=== PATIENT | female | born 1960 | race Caucasian/White ===

== ENCOUNTER → 2017-01-12 | Outpatient (CLI) | payer OTHER | LOC: FIMAGING 16:04 | PROVIDERS: ATTEND Physician Assistant | DX: Z12.31 Encounter for screening mammogram for malignant neoplasm of breast (principal) | CPT/HCPCS: G0202 ==

== ENCOUNTER 2017-06-17 12:03 | Emergency (ER) | payer OTHER ==
[2017-06-17 12:31] VITALS: TEMP 98.4
--- NOTE | 2017-06-17 13:14 | EDPHY ---
H & P Time Seen by Provider: 06/17/17 13:09 HPI/ROS: CHIEF COMPLAINT: Constipation, inability to urinate HISTORY OF PRESENT ILLNESS: This patient is a 57 year old female with history of IBS complaining of constipation ongoing since Thursday and inability to urinate onset this morning. She has a history of difficult usually takes MiraLax for constipation. She stopped taking MiraLax 2 days ago because her stools became quite soft. Since then, she has been unable to have a bowel movement and feels quite constipated. Yesterday, she felt she needed to have a bowel movement every two hours but was only able to pass mucous. Associated with lower abdominal cramping. Today since waking this morning around 5am, she has been unable to urinate and has continued to feel constipated. She has had gradually increasing suprapubic discomfort. No fever, difficulty breathing, vomiting, headache, or other associated symptoms. REVIEW OF SYSTEMS: A 10 point review of systems was performed and is negative with the exception of the elements mentioned in the history of present illness. Past Medical/Surgical History: 1. Hypothyroid 2. Fibromyalgia 3. IBS 4. Currently undergoing hormone replacement therapy. Social History: Nonsmoker, no alcohol use. at bedside. PCP Marjorie Gerber Physical Exam: General Appearance: Alert, appears comfortable, leiva has already been placed Eyes: Pupils equal and round, no conjunctival pallor or injection ENT, Mouth: Mucous membranes moist Neck: Normal inspection Respiratory: Lungs are clear to auscultation Cardiovascular: Regular rate and rhythm Gastrointestinal: Abdomen is soft, mild suprapubic tenderness Rectal: Normal inspection, large amount of fairly soft brown stool present Neurological: A&O, nonfocal, normal gait Skin: Warm and dry Extremities: Normal inspection Psychiatric: Mood and affect normal Constitutional: Initial Vital Signs Temperature (C) 36.9 C 06/17/17 12:15 Heart Rate 112 H 06/17/17 12:15 Respiratory Rate 18 06/17/17 12:15 Blood Pressure 132/83 H 06/17/17 12:15 O2 Sat (%) 97 06/17/17 12:15 O2 Delivery Mode Room Air Allergies/Adverse Reactions: Sulfa (Sulfonamide Antibiotics) Allergy (Mild, Verified 06/17/17 12:31) pregabalin [From Lyrica] Allergy (Verified 06/17/17 12:31) Tetanus Vaccines and Toxoid Allergy (Verified 06/17/17 12:31) flu shots Allergy (Uncoded 06/17/17 12:31) Home Medications: Medication Instructions Recorded Morphine Sulfate [Ms Contin] 15 mg PO 06/17/17 Topiramate [Topamax] 25 mg PO 06/17/17 oxyCODONE HCL [Oxycodone HCl] 5 mg PO 06/17/17 tiZANidine HCL [Zanaflex 2MG (*)] 2 mg PO 06/17/17 Medical Decision Making ED Course/Re-evaluation: 57 year old female presents with four day history of constipation and urinary retention since yesterday evening. I considered multiple etiologies for the urinary retention, but feel that is most likely secondary to obstipation. Leiva catheter placed with 1 L of urine output initially. Discussed with patient, plan for enema. If she is able to have a large bowel movement, we will discontinue the urinary catheter. UA negative for UTI. The patient declines the enema, stating that she doubts that she can hold the enema. She prefers to go home and use magnesium citrate at home. She would like to d/c the leiva herself and not return to the ED or see a urologist. Plan to discharge home in good condition. She will take magnesium citrate at home and be instructed in removing her catheter herself following a successful large bowel movement. She understands this must be removed by Thursday. She will return to the emergency department or follow up with her primary care physician if she is unable to have a bowel movement or if she has recurrent urinary retention. Follow up and return precautions discussed. The patient is comfortable with this plan. Differential Diagnosis: Differential diagnosis includes but not limited to urinary tract infection, cauda equina syndrome, urethral stricture, medication side effect. Departure - Departure Disposition: Home, Routine, Self-Care Clinical Impression: Acute retention of urine Constipation Qualifiers: Constipation type: other constipation type Qualified Code(s): K59.09 - Other constipation Condition: Good Instructions: Constipation (ED), Leiva Catheter Placement and Care (ED), Acute Urinary Retention in Women (ED) Additional Instructions: 1. Follow up with a primary care provider for further evaluation of symptoms and for discussion of your medication regimen. 2. Return to the emergency department for recurrent urinary retention, increased abdominal pain, flank pain, fever, uncontrollable vomiting, or other worsening of condition. 3. Take Magnesium Citrate when you arrive home. 4. Once you have a large bowel movement, you may remove your catheter as explained by the nurse. The catheter must be removed by Thursday no matter what. Referrals: Marjorie Gerber PA [Primary Care Provider] - As per Instructions Ricardo Funez DO [Doctor of Osteopathy] - As per Instructions Report Scribed for: Soila Bob Report Scribed by: Jessie Belcher Date of Report: 06/17/17 Time of Report: 13:13 Physician Review and Approval Statement: 06/17/17 13:13 Portions of this note were transcribed by a medical biller coder. I personally performed a history, physical exam, medical decision making, and confirmed accuracy of information the transcribed note.
[2017-06-17 13:48] LABS: COLOR YELLOW; LEUKOCYTE ESTERASE,URINE NEGATIVE (NEGATIVE); NITRITE,URINE NEGATIVE (NEGATIVE)
[2017-06-17] MEDS ORDERED: MAGNESIUM CITRATE 300 ML BOTTLE PO ONE (14:46)
[2017-06-17 15:23] VITALS: BP 125/83; PULSE 76; RESP 16; O2SAT 96
== END 2017-06-17 15:20 | disposition home or self-care (01) ==
PROC: 0T9B70Z Drainage of Bladder with Drainage Device, Via Natural or Artificial Opening (ICD-10-PCS; principal; 2017-06-17)
DX: K59.09 Other constipation (principal); R33.9 Retention of urine, unspecified

== ENCOUNTER 2017-06-18 10:34 | Inpatient (IN) | payer OTHER ==
--- NOTE | 2017-06-18 10:36 | EDPHY ---
HPI/HX/ROS/PE/MDM Narrative: CHIEF COMPLAINT: Rectal bleeding and pain HPI: The patient is a 57 y/o female arriving via EMS complaining of worsening rectal bleeding and rectal pain over the last day. She was evaluated here yesterday for urinary retention and constipation and discharged with a Garcia in place and recommendation to use magnesium citrate at home. She drank a full bottle, but did not have significant relief with this or suppositories. She has been able to pass a few small, hard stools and has noticed bright red blood per rectum worsening today. It does not sound like she is passing clots. She denies prior history of GI bleeding. She has associated abdominal "contractions" and rectal pain. She has been unable to eat due to pain and malaise. She has not had a colonoscopy. REVIEW OF SYSTEMS: Aside from elements discussed in the HPI, a comprehensive 10-point review of systems was reviewed and is negative. PMH: IBS, hypothyroid, spinal stenosis from degenerative disc disease, fibrocystic breast disease, some kind of colon surgery related to a traumatic abdominal injury SOCIAL HISTORY: Family member at bedside. Nonsmoker. Has pain management doctor. PCP: Dr. Gerber. Prior medical records reviewed including ED visit yesterday 06/17/17. PHYSICAL EXAM: General:Patient is alert, in no acute distress. ENT:Eyes are normal to inspection. ENT inspection normal. Neck: Normal inspection. Full range of motion. Respiratory:No respiratory distress. Breath sounds normal bilaterally. Cardiovascular: Regular rate and rhythm. Strong peripheral pulses. Normal cap refill. Abdomen:The abdomen has diffuse mild tenderness to palpation. There are no peritoneal signs. Back: Normal to inspection. No tenderness to palpation. Skin: Normal color. No rash. Warm and dry. Extremities: Normal appearance. Full range of motion. Neuro: Oriented x3. Normal motor function. Normal sensory function. ED Course: Plan for IV, labs, abdominal CT. 1L IV NS administered. Her last PO intake was yesterday. She has had a high TSH as an outpatient. CT shows extreme constipation that is compressing both ureters and her bladder. I reassessed patient and discussed these results. She continues to be very uncomfortable. I recommended admission for intervention, which she agrees to. Spoke with hospitalist service. Dr. Carranza accepts admission. 1340: Consulted with Dr. Mas, GI. He will assess her during admission. MDM: This patient presents with severe obstipation causing compression of urethra and ureters. She has refused manual disimpaction here in the ED which seems reasonable to me given her description of extreme pain with even wiping. I believe she will require disimpaction under anesthesia. Etiology of symptoms likely related to hypothyroidism and narcotic use. - Data Points Imaging Results: Imaging Impressions Abdomen CT 06/18/17 10:56 Impression: 1. Moderate constipation with fecal impaction suspected. 2. Duplicated urinary collecting system on the right to the level of the mid pelvis where single ureter is seen on the right. 3. There may be some compression upon the distal ureters in the lower pelvis secondary to enlarged rectum with fecal impaction. 4. Diffuse thickening of the bladder wall possibly from cystitis or bladder outlet obstruction. Garcia catheter is in place. Findings discussed with Gary August MD at 13:07 hour, 06/18/2017. Imaging: Discussed imaging studies w/ call center manager Radiologist, I viewed and interpreted images myself Laboratory Results: Laboratory Results 06/18/17 11:03 06/18/17 11:03 06/18/17 06/18/17 06/18/17 11:03 11:03 11:03 WBC RBC Hgb Hct MCV MCH MCHC RDW Plt Count MPV Neut % (Auto) Lymph % (Auto) Jack % (Auto) Eos % (Auto) Baso % (Auto) Nucleat RBC Rel Count Absolute Neuts (auto) Absolute Lymphs (auto) Absolute Monos (auto) Absolute Eos (auto) Absolute Basos (auto) Absolute Nucleated RBC Immature Gran % Immature Gran # PT 13.0 SEC SEC (12.0-15.0) INR 0.99 (0.83-1.16) APTT 31.0 SEC SEC (23.0-38.0) Sodium 135 mEq/L mEq/L (134-144) Potassium 4.0 mEq/L mEq/L (3.5-5.2) Chloride 99 mEq/L mEq/L (97-110) Carbon Dioxide 23 mEq/l mEq/l (22-31) Anion Gap 13 mEq/L mEq/L (8-16) BUN 14 mg/dL mg/dL (7-23) Creatinine 0.9 mg/dL mg/dL (0.6-1.0) Estimated GFR > 60 Glucose 83 mg/dL mg/dL (70-100) Calcium 9.0 mg/dL mg/dL (8.5-10.4) TSH Pending Free T4 Pending Total T3 Pending 06/18/17 11:03 WBC 13.55 10^3/uL H 10^3/uL (3.80-9.50) RBC 4.97 10^6/uL 10^6/uL (4.18-5.33) Hgb 14.8 g/dL g/dL (12.6-16.3) Hct 42.8 % % (38.0-47.0) MCV 86.1 fL fL (81.5-99.8) MCH 29.8 pg pg (27.9-34.1) MCHC 34.6 g/dL g/dL (32.4-36.7) RDW 13.6 % % (11.5-15.2) Plt Count 324 10^3/uL 10^3/uL (150-400) MPV 9.2 fL fL (8.7-11.7) Neut % (Auto) 89.0 % H % (39.3-74.2) Lymph % (Auto) 5.2 % L % (15.0-45.0) Jack % (Auto) 4.6 % % (4.5-13.0) Eos % (Auto) 0.4 % L % (0.6-7.6) Baso % (Auto) 0.4 % % (0.3-1.7) Nucleat RBC Rel Count 0.0 % % (0.0-0.2) Absolute Neuts (auto) 12.05 10^3/uL H 10^3/uL (1.70-6.50) Absolute Lymphs (auto) 0.70 10^3/uL L 10^3/uL (1.00-3.00) Absolute Monos (auto) 0.63 10^3/uL 10^3/uL (0.30-0.80) Absolute Eos (auto) 0.05 10^3/uL 10^3/uL (0.03-0.40) Absolute Basos (auto) 0.06 10^3/uL 10^3/uL (0.02-0.10) Absolute Nucleated RBC 0.00 10^3/uL 10^3/uL (0-0.01) Immature Gran % 0.4 % % (0.0-1.1) Immature Gran # 0.06 10^3/uL 10^3/uL (0.00-0.10) PT INR APTT Sodium Potassium Chloride Carbon Dioxide Anion Gap BUN Creatinine Estimated GFR Glucose Calcium TSH Free T4 Total T3 Medications Given: Discontinued Medications Sodium Chloride (Ns) 1,000 mls @ 0 mls/hr IV EDNOW ONE; Wide Open PRN Reason: Protocol Stop: 06/18/17 10:56 Last Admin: 06/18/17 11:34 Dose: 1,000 mls General Initial Vital Signs: Initial Vital Signs Temperature (C) 37.3 C 06/18/17 10:34 Heart Rate 103 H 06/18/17 10:34 Respiratory Rate 16 06/18/17 10:34 Blood Pressure 122/86 H 06/18/17 10:34 O2 Sat (%) 99 06/18/17 10:34 O2 Delivery Mode Room Air Allergies/Adverse Reactions: Sulfa (Sulfonamide Antibiotics) Allergy (Mild, Verified 06/17/17 12:31) codeine Allergy (Verified 06/18/17 10:45) pregabalin [From Lyrica] Allergy (Verified 06/17/17 12:31) Tetanus Vaccines and Toxoid Allergy (Verified 06/17/17 12:31) flu shots Allergy (Uncoded 06/17/17 12:31) Home Medications: Medication Instructions Recorded Morphine Sulfate [Ms Contin] 15 mg PO TID 06/17/17 tiZANidine HCL [Zanaflex 2MG (*)] 4 mg PO Q4HRS PRN 06/17/17 Aspirin [Aspirin 81mg (*)] 81 mg PO DAILY 06/18/17 Estradiol/Norethindrone Acet 1 each PO DAILY 06/18/17 [Lopreeza 1 mg-0.5 mg Tablet] Herbals/Supplements -Info Only 1 ea PO DAILY 06/18/17 Levothyroxine [Synthroid 125 mcg 125 mcg PO DAILY06 06/18/17 (*)] MILNACIPRAN HCL [Savella 100 mg] 100 mg PO DAILY 06/18/17 Polyethylene Glycol 3350 [Miralax 17 gm PO DAILY PRN 06/18/17 17 gm (*)] Topiramate [Topamax 25MG (*)] 25 mg PO BID 06/18/17 oxyCODONE IR [Oxycodone Ir (*)] 30 mg PO DAILY PRN 06/18/17 traZODone [traZODONE 50MG (*)] 50 - 100 mg PO HS PRN 06/18/17 Departure - Departure Disposition: [facility] Inpatient Acute Clinical Impression: ureter compression, severe, Pyelonephritis Constipation Qualifiers: Constipation type: other constipation type Qualified Code(s): K59.09 - Other constipation Condition: Fair Report Scribed for: Gary August Report Scribed by: Zehra Arreola Date of Report: 06/18/17 Time of Report: 10:52 Physician Review and Approval Statement: Portions of this note were transcribed by an ED scribe. I personally performed the history, physical exam, and medical decision making; and confirm the accuracy of the information in the transcribed note.
[2017-06-18] MEDS ORDERED: NS 1,000 ML IV ONE (10:55)
[2017-06-18 11:10] LABS: PLATELET COUNT 324 10^3/uL (150-400)
[2017-06-18 11:21] LABS: INR 0.99 (0.83-1.16)
[2017-06-18] MEDS ORDERED: IOPAMIDOL (ISOVUE-300) 100 ML BTL ONE (11:43)
[2017-06-18] MEDS ORDERED: ACETAMINOPHEN 325 MG TAB PO PRN (13:39)
[2017-06-18] MEDS ORDERED: ONDANSETRON DISINTEGRATING 4 MG TAB PO PRN (13:39)
[2017-06-18] MEDS ORDERED: ONDANSETRON 4 MG/2 ML VIAL IVP PRN (13:39)
[2017-06-18] MEDS ORDERED: NS 1,000 ML IV SCH (13:45)
[2017-06-18] MEDS ORDERED: POLYETHYLENE GLYCOL 3350 17 GM PKT PO PRN (13:59)
[2017-06-18] MEDS ORDERED: traZODone 50 MG TAB PO PRN (13:59)
--- NOTE | 2017-06-18 14:28 | GHP ---
[f rep st] HISTORY AND PHYSICAL DATE OF ADMISSION: 06/18/2017 CHIEF COMPLAINT: Rectal pain/constipation. HISTORY OF PRESENT ILLNESS: This is a 57-year-old female who was seen in the emergency department ye sterday for constipation, as well as urinary retention. At that time, Garcia was placed. She was dis charged home with a recommendation to take mag citrate. She did this and had no relief. She has bee n constipated for about 5 days. She has had very small and hard stools since then, including some bl ood, as well as significant rectal pain. She has tried, additionally, a Fleet enema as well. She padilla s never been constipated like this before. Her last TSH was checked in April. It was found to b e 57. At that point, she was started on Synthroid 125 mg daily, which she has been taking. She has some minor abdominal pain. She has not had any emesis. PAST MEDICAL/SURGICAL HISTORY: 1. Irritable bowel syndrome. 2. Hypothyroid. 3. Spinal stenosis. 4. Fibrocystic breast changes. 5. Colon surgery. 6. Fibromyalgia. 7. Respiratory arrest here 7 years ago, requiring intubation and kidney failure, requiring emergent dialysis. MEDICATIONS: Please see medication reconciliation. ALLERGIES: Sulfa, codeine, pregabalin, tetanus shots, and flu shots. FAMILY HISTORY: Mother had a stroke. SOCIAL HISTORY: She does not drink or smoke. She is accompanied by her . REVIEW OF SYSTEMS: A 10-point review of systems is conducted and is negative, except per HPI. PHYSICAL EXAM: VITAL SIGNS: Blood pressure 122/86, heart rate 103, respiration rate 16, saturating 99% on room air. Temperature is 37.3. GENERAL: The patient is a pleasant female who appears somewh at uncomfortable, in mild distress. HEENT: Shows her to be normocephalic, atraumatic. CARDIOVASCUL AR: Regular rate and rhythm. No murmurs, rubs, or gallops. PULMONARY: Lungs clear to auscultation bilaterally. ABDOMEN: Soft. She is tender to palpation mostly in the lower abdomen. SKIN: Exam shows no rash. : Exam shows no Garcia. NEUROLOGIC: Exam shows her to be alert and oriented x3. She is moving all extremities. PSYCHIATRIC: Exam shows a normal mood and affect. LABS: White count of 13.5, INR 0.99. Basic metabolic panel is normal. DATA: 1. I discussed this with Dr. August in the emergency department. Will admit to med/surg. 2. Abdominal CT shows likely fecal impaction with some constipation, diffuse bladder wall thickening . IMPRESSION AND PLAN: This is a 57-year-old female with constipation/fecal impaction. 1. Constipation/fecal impaction: GI has been consulted. I think she will likely need manual decomp action at this point. Will keep her n.p.o. pending Dr. Mas's evaluation. 2. Hypothyroid: I have checked another TSH. I suspect that her TSH is somewhat corrected as she is now on Synthroid. We will continue this medication. 3. Bladder wall thickening: She should get followup with Urology to make sure that this resolves af ter her urinary retention has resolved. 4. Urinary retention: Suspect that this is due to the size of her fecal impaction. When she is dis impacted, will remove Garcia and assess. 5. Chronic pain, on continuous narcotics: Certainly contributing to her constipation. /[id number]/MODL
[2017-06-18] MEDS: morphINE SR 15 MG TAB PO SCH ×2 (15:43→23:09)
[2017-06-18] MEDS ORDERED: HYDROmorphONE/DILAUDID 1 MG/ML INJ IVP ONE (20:40)
[2017-06-18] MEDS ORDERED: METHYLNALTREXONE BROMIDE 12 MG/0.6 ML INJ SC ONE (21:12)
[2017-06-18] MEDS ORDERED: LIDOCAINE 2% JELLY 20 ML (UROJECT) UR ONE (21:12)
[2017-06-18] MEDS ORDERED: LIDOCAINE 2% JELLY 5 ML TUBE TP ONE ×2 (21:30)
--- NOTE | 2017-06-18 21:30 | HOSPPROG ---
Hospitalist Progress Note Assessment/Plan: CTSP for pain of fecal impaction CT scan reviewed discussed w dr bravo disimpaction attempted at bedside- large amount of soft stool 7 cm from anal verge, unable to remove large amounts 2/2 pain (had been given IV dilaudid prior ) attempt aborted given soft stool, this is more c/w severe constipation 2/2 narcotics?IBS and thyroid issues 1. relistor given X 1 2. urojet to irritated anus 3. GI to see- may need disimpaction under general anesthesia if relistor ineffective 45' care Objective: Vital Signs Temp Pulse Resp BP Pulse Ox 36.3 C 95 16 121/75 H 98 06/18/17 19:15 06/18/17 19:15 06/18/17 19:15 06/18/17 19:15 06/18/17 19:15 06/17/17 06/18/17 06/19/17 05:59 05:59 05:59 Intake Total 1500 Output Total 1000 Balance 500 PT 13.0 SEC (12.0-15.0) 06/18/17 11:03 INR 0.99 (0.83-1.16) 06/18/17 11:03 ICD10 Worksheet Patient Problems: Problems Problem Status Onset Constipation Acute Pyelonephritis Acute Acute retention of urine Acute
[2017-06-18] MEDS: DIAZEPAM 10 MG/2 ML SYR IVP PRN (23:06)
[2017-06-18] MEDS: TOPIRAMATE 25 MG TAB PO SCH (23:09)
--- NOTE | 2017-06-19 01:25 | GCON ---
[f rep st] CONSULTATION DATE OF CONSULTATION: 06/18/2017 REFERRING PHYSICIAN: Lobo Carranza MD INDICATION FOR CONSULTATION: Obstipation, abnormal x-ray. HISTORY OF PRESENT ILLNESS: The patient is a 57-year-old female who has a past medical history signi ficant for fibromyalgia, spinal stenosis, chronic pain, hypothyroidism, who presented to the emergenc y room yesterday for constipation and urinary retention. They placed a Garcia in the emergency room a nd discharged her, asking her to take some magnesium citrate and a Fleets enema. She did that, but h ad no relief. She states she has been constipated for about 5 days, which is unusual for her. She t akes MiraLAX daily and says that she has had good bowel movements previously. There had been some is casey with changing her thyroid medications. She states that she was on some generic for a number of m onths that was not working well and may have been too much where she lost weight and may have lost padilla ir. She states that there was some miscommunication with Dr. Selby's office in getting the prescriptio n and that she was without a prescription for 5 weeks. When she checked her labs again, she had a TS H of 57. She was restarted on Synthroid 125 mcg a day and currently has reasonable laboratory tests in regard to her thyroid. She did have a CT scan today which showed significant obstipation with a l arge stool ball in her rectum. I am now called to help evaluate and treat her fecal impaction. PAST MEDICAL HISTORY: Fibromyalgia, chronic pain, spinal stenosis. She had some type of abdominal t rauma back in [place] for which she had exploratory laparotomy. They took out her appendix. Approximately 7 years ago, she was admitted to [facility] and had some type of respiratory arrest which requ ired intubation, subsequent kidney failure, requiring emergent dialysis, but resolved. PAST SURGICAL HISTORY: Appendectomy, exploratory laparotomy from a trauma back in [place]. ALLERGIES: 1. Sulfa, red rashes. 2. Lyrica, red rashes. 3. Codeine causes nausea. 4. Tetanus shots and flu shot, she says she is allergic to as well. MEDICATIONS: At home: 1. Zanaflex 2 mg to 4 mg p.o. q.4 hours p.r.n. 2. Morphine sulfate 50 mg t.i.d. 3. Trazodone 50 mg to 100 mg p.o. q.h.s. 4. Synthroid 125 mcg a day. 5. Milnacipran 100 mg daily. 6. MiraLAX 17 g daily. 7. Aspirin 81 mg daily. 8. Oxycodone IR 30 mg daily p.r.n. 9. Topamax 25 mg b.i.d. 10. Herbal supplements. 11. Estradiol. 12. Norethindrone acetate 1 tab daily. In house, she is written for: 1. Tylenol p.r.n. 2. Aspirin 81 mg daily. 3. Diazepam 5 mg IV q.6 p.r.n. 4. Synthroid 125 mcg daily. 5. MS-Contin 50 mg p.o. t.i.d. 6. Zofran p.r.n. 7. Oxycodone 30 mg p.o. daily p.r.n. 8. MiraLAX 17 g p.o. p.r.n. constipation. 9. Zanaflex 4 mg q.4 hours p.r.n. 10. Topamax 25 mg p.o. b.i.d. SOCIAL HISTORY: She quit smoking many, many years ago. She does not drink alcohol. FAMILY HISTORY: No colon cancer, colon polyps to her knowledge. She said that she had a Cologuard D NA test not long ago. REVIEW OF SYSTEMS: A complete review of systems was performed and is negative other than in the HPI. Specifically, no chest pain, palpitations, fevers, chills, sweats, nausea, vomiting. PHYSICAL EXAMINATION: GENERAL: Thin female sitting in her bed in no acute distress. VITAL SIGNS: Blood pressure 120/75, pulse is 95, respirations 16. She is 98% on room air. Temperature is 36.7. HEENT: Eyes anicteric. MIKEY, EOMI. Mouth: No lesions. Moist membranes. NECK: Supple. Full ran ge of motion. No JVD. BACK: Some spine tenderness. No CVA tenderness. LUNGS: Clear to auscultat ion. CARDIAC: S1, S2. Regular rate and rhythm. No murmurs, rubs or gallops appreciated. ABDOMEN: Bowel sounds are normal pitch and frequency. Abdomen is soft. Tender mostly in the lower abdomen, left greater than right. No rebound. No guarding. No hepatosplenomegaly. EXTREMITIES: No cyanos is, clubbing, or edema. NEUROLOGIC: Cranial nerves intact. Nonfocal. SKIN: No stigmata of advanc ed liver disease. No rashes. Multiple tattoos. LABORATORY DATA: From today: WBC 13.55, hemoglobin 14.8, hematocrit 42.8, platelet count 324. Pro time 13.0. INR 0.99. PTT 31. Sodium 135, potassium 4.0, chloride 99, bicarb 23, BUN 14, creatinine 0.9, glucose 83, calcium 9.0. TSH 1.82, free T4 2.27, total T3 0.901. CT scan of the abdomen and pelvis performed today: Moderate constipation and fecal impaction suspect ed. Duplicate urinary collecting system on the right to the level of the mid pelvis, where a single ureter is seen in the right. There may be some compression upon the distal ureters in the lower pelv is. Although on my review with radiologist, it looked like it might be between the cecum. Diffuse t hickening of the bladder from cystitis or bladder outlet obstruction. Garcia catheter in place. From 05/04/2017: TSH 57.9. Free T4 0.20. From 01/12/2017: TSH less than 0.015. Free T4 3.06. No LFTs have been done. Urine from yesterday showed pH of 8, specific gravity 1.006 and was otherwise negative. ASSESSMENT: 1. Fecal impaction/obstipation. 2. Chronic pain, on narcotics. 3. Possibly dilated ureter secondary to stool in the colon versus other abnormality. 4. Hypothyroidism, now well controlled. 5. Bladder wall thickening. RECOMMENDATIONS: 1. Dr. Oleary did attempt fecal disimpaction manually tonight but was unsuccessful. We may attempt this again later depending on the response to Relistor. 2. Dose of Relistor has just been given. 3. Continue MiraLAX. 4. Consider Dulcolax as a stimulant. 5. If the above is unsuccessful, then I would recommend disimpaction under general anesthesia. 6. I do recommend further evaluation of her ureters, biliary stent and bladder. If the ureters stil l seem to be dilated and it is not related to fecal impaction but they think it could be related to s ome other etiology in the colon, then I would recommend a colonoscopy. She did have a DNA test done so she does not need a colonoscopy for screening. 7. I suggest trying to decrease narcotics and benzodiazepines, but I do not think the patient will b e interested in this. 8. She will need a bowel regimen including MiraLAX, but likely would recommend a periodic purge with something equivalent to a colonoscopy prep with MiraLAX and Gatorade. 9. Check comprehensive panel in morning. 10. Check magnesium and phosphorus in the morning. 11. Further recommendations to follow results of above and clinical course. Thank you very much for allowing me to participate in this patient's health care. Please do not hesi koenig to call me with any questions. Copy requested to: Kassidy Mendoza [facility] /[id number]/MODL
[2017-06-19] MEDS: DIAZEPAM 10 MG/2 ML SYR IVP PRN ×3 (05:26→21:36)
[2017-06-19 05:42] LABS: PLATELET COUNT 313 10^3/uL (150-400)
[2017-06-19] MEDS ORDERED: LEVOTHYROXINE 125 MCG TAB PO SCH (06:00)
[2017-06-19] MEDS: LEVOTHYROXINE 125 MCG TAB PO SCH (08:07)
[2017-06-19] MEDS ORDERED: SAVELLA PO SCH (09:00)
[2017-06-19] MEDS ORDERED: MILNACIPRAN HCL 100 MG PO SCH (09:00)
[2017-06-19] MEDS: ASPIRIN 81 MG CHEWABLE TAB PO SCH (09:34)
[2017-06-19] MEDS: TOPIRAMATE 25 MG TAB PO SCH ×2 (09:34→20:35)
[2017-06-19] MEDS: morphINE SR 15 MG TAB PO SCH ×3 (09:34→21:01)
[2017-06-19] MEDS: ESTRADIOL PO SCH (09:35)
[2017-06-19] MEDS: NORETHINDRONE ACET PO SCH (09:35)
[2017-06-19] MEDS: MILNACIPRAN HCL 100 MG PO SCH ×2 (09:35→20:35)
[2017-06-19] MEDS ORDERED: METHYLNALTREXONE BROMIDE 12 MG/0.6 ML INJ SC ONE (09:44)
--- NOTE | 2017-06-19 10:42 | SOAPPROG ---
SOAP Progress Note Assessment/Plan: Assessment:Plan: 1) Obstipation - no response to first dose Relistor, second given this am. IF not working then needs general anesthesia and disimpaction - tentative at 3: 30pm. ONce disimpacted would give a colon prep to clean her out. I would like her stool at the end to look like dilute urine. Then she should increase her Miralax and consider periodic colon purge with PEG solution (Miralax and Gatorade as used for outpt colon prep) 2) Narcotic use - she needs to try to decrease and stop. she will end up with a narcotic bowel if she stays on these narcotics. 3) - will need eval once cleaned out to see why there is a diluted ureter - repeat imaging may show it resolved with colon purge 4) Lytes - Mag and phos are nml 06/19/17 10:43 Subjective: CC- obstipation, narcotic intermediate project manager use pt says no response to Relistor last night pain still the same Objective: Vital Signs Temp Pulse Resp BP Pulse Ox 37.0 C 91 20 124/82 H 95 06/19/17 07:56 06/19/17 07:56 06/19/17 07:56 06/19/17 07:56 06/19/17 07:56 Laboratory Results 06/19/17 05:21 06/19/17 05:21 06/18/17 06/19/17 06/20/17 05:59 05:59 05:59 Intake Total 3152 Output Total 1850 Balance 1302 PT 13.0 SEC (12.0-15.0) 06/18/17 11:03 INR 0.99 (0.83-1.16) 06/18/17 11:03 A+Ox3 CTA S1S2, RRR +BS, soft but tender no r/g Laboratory Tests 06/19/17 05:21 Phosphorus 2.8 Magnesium 2.1 ICD10 Worksheet Patient Problems: Problems Problem Status Onset Constipation Acute Pyelonephritis Acute Acute retention of urine Acute
--- NOTE | 2017-06-19 11:15 | HOSPPROG ---
Hospitalist Progress Note Assessment/Plan: # fecal impaction - failed disimpaction last night; received relistor without success; had been very hypothyroid recently, also on narcotics - plan disimpaction under anesthesia today; Dr Mas plans Golytely afterwards # hypothyroid - TSH normal # chronic pain on continuous narcotics # urologic abnormalities - will try to dc leiva after disimpaction, then reimage to reassess - may need urology assistance # urinary retention - possibly d/t constipation - leiva, dc soon Subjective: no BM; failed disimpaction last night Objective: Vital Signs Temp Pulse Resp BP Pulse Ox 37.0 C 91 20 124/82 H 95 06/19/17 07:56 06/19/17 07:56 06/19/17 07:56 06/19/17 07:56 06/19/17 07:56 Laboratory Results 06/19/17 05:21 06/19/17 05:21 06/18/17 06/19/17 06/20/17 05:59 05:59 05:59 Intake Total 3152 Output Total 1850 Balance 1302 PT 13.0 SEC (12.0-15.0) 06/18/17 11:03 INR 0.99 (0.83-1.16) 06/18/17 11:[address] Mas - Physical Exam Constitutional: no apparent distress, appears nourished Cardiovascular: regular rate and rhythym, no murmur, rub, or gallop Respiratory: no respiratory distress, no rales or rhonchi, clear to auscultation Gastrointestinal: normoactive bowel sounds, other (soft, mild TTP), No guarding , No rebound ICD10 Worksheet Patient Problems: Problems Problem Status Onset Constipation Acute Acute retention of urine Acute Pyelonephritis Acute
--- NOTE | 2017-06-19 12:03 | PDMN ---
Medical Necessity Medical necessity: Pt meets INPT criteria per MD as of 06/19/17. Est. LOS >2 MN for ongoing eval/mgmt of fecal impaction, hypothyroid, chronic pain on continuous narcotics, urologic abnormalities, urinary retention per MD progress note.
--- NOTE | 2017-06-19 14:07 | ASMTCMCOM ---
CM Note CM Note Notes: Reviewed chart and discussed with RN. Jay pt will dc home w/ w/no case management needs. CM w/f for changes/needs. Date Signed: 06/19/2017 02:07 PM Electronically Signed By:Jeanette Rodgers RN
--- NOTE | 2017-06-19 16:39 | PDANEPAE ---
ANE History of Present Illness 57 year old female presents for dis-impaction. ANE Past Medical History - Cardiovascular History Hx Hypertension: No Hx Arrhythmias: No Hx Chest Pain: No Hx Coronary Artery / Peripheral Vascular Disease: No Hx CHF / Valvular Disease: No Hx Palpitations: No - Pulmonary History Hx COPD: No Hx Asthma/Reactive Airway Disease: No Hx Recent Upper Respiratory Infection: No Hx Oxygen in Use at Home: No Hx Sleep Apnea: No Sleep Apnea Screening Result - Last Documented: Negative - Endocrine History Hx Diabetes: No Hypothyroid: Yes Hyperthyroid: No Obesity: no - Renal History Hx Renal Disorders: No - Liver History Hx Hepatic Disorders: No - Neurological & Psychiatric Hx Hx Neurological and Psychiatric Disorders: No - Cancer History Hx Cancer: No - GI History Hx Gastrointestinal Disorders: Yes - Chronic Pain History Chronic Pain: Yes (r/t DDD and fibromyalgia) ANE Review of Systems Review of systems is: negative Review of Systems: - Exercise capacity Exercise capacity: >=4 METS - Systems Gastrointestinal: Reports: abdominal pain ANE Patient History - Allergies Allergies/Adverse Reactions: Sulfa (Sulfonamide Antibiotics) Allergy (Mild, Verified 06/17/17 12:31) codeine Allergy (Verified 06/18/17 10:45) pregabalin [From Lyrica] Allergy (Verified 06/17/17 12:31) Tetanus Vaccines and Toxoid Allergy (Verified 06/17/17 12:31) flu shots Allergy (Uncoded 06/17/17 12:31) - Home Medications Home medications: home medication list seen and reviewed Home Medications: Morphine Sulfate [Ms Contin] 15 mg PO TID 06/17/17 [Last Taken 06/18/17 08:00] tiZANidine HCL [Zanaflex 2MG (*)] 4 mg PO Q4HRS PRN 06/17/17 [Last Taken 08:00] Aspirin [Aspirin 81mg (*)] 81 mg PO DAILY 06/18/17 [Last Taken Unknown] Estradiol/Norethindrone Acet [Lopreeza 1 mg-0.5 mg Tablet] 1 each PO DAILY 06/18 [Last Taken 06/17/17] Herbals/Supplements -Info Only 1 ea PO DAILY 06/18/17 [Last Taken Unknown] Levothyroxine [Synthroid 125 mcg (*)] 125 mcg PO DAILY06 06/18/17 [Last Taken ] MILNACIPRAN HCL [Savella 100 mg] 100 mg PO DAILY 06/18/17 [Last Taken 06/17/17] Polyethylene Glycol 3350 [Miralax 17 gm (*)] 17 gm PO DAILY PRN 06/18/17 [Last Taken Unknown] Topiramate [Topamax 25MG (*)] 25 mg PO BID 06/18/17 [Last Taken 06/17/17 21:00] oxyCODONE IR [Oxycodone Ir (*)] 30 mg PO DAILY PRN 06/18/17 [Last Taken 06/17/17 ] traZODone [traZODONE 50MG (*)] 50 - 100 mg PO HS PRN 06/18/17 [Last Taken 50mg] - NPO status NPO Status: no food or drink >8 hours NPO Since - Liquids (Date): 06/18/17 NPO Since - Liquids (Time): 12:00 NPO Since - Solids (Date): 06/18/17 NPO Since - Solids (Time): 12:00 - Anes Hx Anes Hx: no prior problems - Smoking Hx Smoking Status: Never smoked Marijuana use: No - Alcohol Use Alcohol Use: None - Family Anes Hx Family Anes Hx: neg - N/A ANE Labs/Vital Signs - Labs Result Diagrams: 06/19/17 05:21 06/19/17 05:21 - Vital Signs Vital Signs: reviewed preoperatively; see RN documention for details Blood Pressure: 123/75 Heart Rate: 97 Respiratory Rate: 18 O2 Sat (%): 99 Height: 162.56 cm Weight: 43.998 kg ANE Physical Exam - Airway Neck exam: FROM Mallampati Score: Class 2 Mouth exam: normal dental/mouth exam - Pulmonary Pulmonary: no respiratory distress - Cardiovascular Cardiovascular: regular rate and rhythym - ASA Status ASA Status: II ANE Anesthesia Plan Anesthesia Plan: GA with mask Total IV Anesthesia: Yes
[2017-06-19] MEDS ORDERED: PROPOFOL/EMULSION 500 MG/50 ML BOTTLE IV ONE (16:49)
[2017-06-19] MEDS ORDERED: MIDAZOLAM 2 MG/2 ML VIAL ONE (16:53)
[2017-06-19] MEDS ORDERED: ROCURONIUM 50 MG/5 ML VIAL ONE (16:58)
[2017-06-19] MEDS ORDERED: LR 500 ML IV PRN (17:15)
[2017-06-19] MEDS ORDERED: fentaNYL 100 MCG/2 ML INJ IVP PRN (17:15)
[2017-06-19] MEDS ORDERED: HYDROmorphONE/DILAUDID 1 MG/ML INJ IVP PRN (17:15)
[2017-06-19] MEDS ORDERED: ONDANSETRON 4 MG/2 ML VIAL IVP PRN (17:15)
[2017-06-19] MEDS ORDERED: NALOXONE HCL 0.4 MG/ML INJ IVP PRN (17:15)
[2017-06-19] MEDS ORDERED: fentaNYL 100 MCG/2 ML INJ ONE (17:17)
--- NOTE | 2017-06-19 17:35 | POSTOPPROG ---
Post Op Note Date of Operation: 06/19/17 Surgeon: Frankie Mas Anesthesiologist: Frankie Brand MD Anesthesia: GET(General Endotracheal) Pre-op Diagnosis: fecal impaction Post-op Diagnosis: fecal impaction, irritated hemorrhoids, o/m nml flex-sig with lots of stool Indication: feal impaction, abnml CT scan Procedure: manual disimpaction followed by flex-sig Findings: lots of stool, nml mucosa, hemorrhoids Inf/Abcess present in the surg proc area at time of surgery?: No EBL: Minimal (few mlk from disimpaction) Total fluids administered: 500ml LR Complications: none immediate
--- NOTE | 2017-06-19 17:38 | SOAPPROG ---
SOAP Progress Note Assessment/Plan: Assessment:Plan: 1) Obstipation - no response to first dose Relistor, second given this am. IF not working then needs general anesthesia and disimpaction - tentative at 3: 30pm. ONce disimpacted would give a colon prep to clean her out. I would like her stool at the end to look like dilute urine. Then she should increase her Miralax and consider periodic colon purge with PEG solution (Miralax and Gatorade as used for outpt colon prep) 2) Narcotic use - she needs to try to decrease and stop. she will end up with a narcotic bowel if she stays on these narcotics. 3) - will need eval once cleaned out to see why there is a diluted ureter - repeat imaging may show it resolved with colon purge 4) Lytes - Mag and phos are nml 06/19/17 10:43 06/19/17 17:35 see felx-sig report manual disimpacted under general anesthesia flex-sig to distal transverse colon, no sig lesions noted, hemorrhoids irritated still needs laxatives to completely clear out - mag citrate tonight, golytley prep in am, clear liquids until she is clear Hospitalist need to re-evaluate her system once she is clean out to see if still dilated Dr. Rubio will be rounding in am Objective: Vital Signs Temp Pulse Resp BP Pulse Ox 36.8 C 97 18 123/75 H 99 06/19/17 13:58 06/19/17 16:39 06/19/17 16:39 06/19/17 16:39 06/19/17 16:39 06/18/17 06/19/17 06/20/17 05:59 05:59 05:59 Output Total 400 Balance -400 PT 13.0 SEC (12.0-15.0) 06/18/17 11:03 INR 0.99 (0.83-1.16) 06/18/17 11:03 ICD10 Worksheet Patient Problems: Problems Problem Status Onset Constipation Acute Pyelonephritis Acute Acute retention of urine Acute
--- NOTE | 2017-06-19 18:09 | POSTANESTH ---
Post Anesthetic Evaluation Cardiovascular Status: Normal, Stable, Similar to Pre-Op Cond Respiratory Status: Normal, Stable, Similar to Pre-op Cond. Level of Consciousness/Mental Status: Can Participate in Eval, Mildly Sleepy, Arousable Pain Control: Adequate, Prn Tx Ordered Nausea/Vomiting Control: Adequate, Prn Tx Ordered Complications Possibly Related to Anesthesia: None Noted
[2017-06-19] MEDS ORDERED: MAGNESIUM CITRATE 300 ML BOTTLE PO ONE (19:00)
[2017-06-20] MEDS: DIAZEPAM 10 MG/2 ML SYR IVP PRN (03:57)
[2017-06-20] MEDS: LEVOTHYROXINE 125 MCG TAB PO SCH (05:17)
[2017-06-20] MEDS: ASPIRIN 81 MG CHEWABLE TAB PO SCH (08:33)
[2017-06-20] MEDS: TOPIRAMATE 25 MG TAB PO SCH ×2 (08:33→20:30)
[2017-06-20] MEDS: morphINE SR 15 MG TAB PO SCH ×3 (08:33→21:10)
[2017-06-20] MEDS: MILNACIPRAN HCL 100 MG PO SCH ×2 (08:35→20:28)
[2017-06-20] MEDS: NORETHINDRONE ACET PO SCH (08:36)
[2017-06-20] MEDS: ESTRADIOL PO SCH (08:36)
[2017-06-20] MEDS ORDERED: PEG 3350/NA SULF,BICARB,CL/KCL (GAVILYTE-G) 4000 ML BTL PO ONE ×2 (09:00→12:15)
[2017-06-20] MEDS: DIAZEPAM 2 MG TAB PO PRN ×2 (11:57→19:16)
--- NOTE | 2017-06-20 12:33 | SOAPPROG ---
SOAP Progress Note Assessment/Plan: Assessment: 1. Narcotic induced obstipation; improved with digital disimpaction and insertion of enema. 2. Chronic back pain on chronic narcotics. 3. Ureteral dilation. Plan: 1. Colyte prep today. 2. Hopefully home tomorrow on 'bowel regiment of daily Miralax. 3. Repeat imaging of urinary tract once bowels cleared. Jason Rubio MD 06/20/17 12:30 Subjective: CC: Stool impaction/obstipation secondary to chronic narcotic use. Interval HPI: Patient feeling better with less abdominal pain after stool disimpaction yesterday. Having small loose stools today. Has not yet started bowel prep. Objective: Vital Signs Temp Pulse Resp BP Pulse Ox 36.3 C 90 12 121/76 H 93 06/20/17 11:23 06/20/17 11:23 06/20/17 11:23 06/20/17 11:23 06/20/17 11:23 06/19/17 06/20/17 06/21/17 05:59 05:59 05:59 Intake Total 125 Output Total 400 Balance -275 PT 13.0 SEC (12.0-15.0) 06/18/17 11:03 INR 0.99 (0.83-1.16) 06/18/17 11:03 Physical Exam - Physical Exam General Appearance: alert, no apparent distress, thin Respiratory: lungs clear, normal breath sounds Cardiac/Chest: normal peripheral pulses, regular rate, rhythm Abdomen: normal bowel sounds, non-tender, soft Skin: normal color, warm/dry Neuro/Psych: alert, normal mood/affect, oriented x 3 ICD10 Worksheet Patient Problems: Problems Problem Status Onset Constipation Acute Pyelonephritis Acute Acute retention of urine Acute
--- NOTE | 2017-06-20 15:01 | HOSPPROG ---
Hospitalist Progress Note Assessment/Plan: # fecal impaction - failed disimpaction; received relistor without success; had been very hypothyroid recently, also on narcotics - s/p disimpaction under anesthesia today; now on Golytely # hypothyroid - TSH normal # chronic pain on continuous narcotics # urinary retention, dilated ureters -leiva out and urinating well -check follow-up renal US Subjective: no new complaints, anxious for discharge Objective: Vital Signs Temp Pulse Resp BP Pulse Ox 36.3 C 90 12 121/76 H 93 06/20/17 11:23 06/20/17 11:23 06/20/17 11:23 06/20/17 11:23 06/20/17 11:23 06/19/17 06/20/17 06/21/17 05:59 05:59 05:59 Intake Total 125 Output Total 400 Balance -275 PT 13.0 SEC (12.0-15.0) 06/18/17 11:03 INR 0.99 (0.83-1.16) 06/18/17 11:03 - Physical Exam Constitutional: no apparent distress, appears nourished, not in pain Cardiovascular: regular rate and rhythym, no murmur, rub, or gallop Respiratory: no respiratory distress, no rales or rhonchi, clear to auscultation Gastrointestinal: normoactive bowel sounds, soft, non-tender abdomen, no palpable masses Skin: no rashes or abrasions, no fluctuance, no induration Neurologic: AAOx3, sensation intact bilaterally Psychiatric: interacting appropriately, not anxious, not encephalopathic, thought process linear ICD10 Worksheet Patient Problems: Problems Problem Status Onset Constipation Acute Pyelonephritis Acute Acute retention of urine Acute
[2017-06-21] MEDS: DIAZEPAM 2 MG TAB PO PRN ×2 (01:36→07:34)
[2017-06-21 03:46] VITALS: PULSE 88
[2017-06-21 05:07] LABS: PLATELET COUNT 336 10^3/uL (150-400)
[2017-06-21] MEDS: LEVOTHYROXINE 125 MCG TAB PO SCH (05:13)
[2017-06-21 08:04] VITALS: BP 121/82; RESP 14; TEMP 98.2; O2SAT 96
[2017-06-21] MEDS: morphINE SR 15 MG TAB PO SCH (09:28)
[2017-06-21] MEDS: ASPIRIN 81 MG CHEWABLE TAB PO SCH (09:29)
[2017-06-21] MEDS: MILNACIPRAN HCL 100 MG PO SCH (09:31)
[2017-06-21] MEDS: TOPIRAMATE 25 MG TAB PO SCH (09:33)
--- NOTE | 2017-06-21 10:42 | ASDISCHSUM ---
Discharge Information Plan Status:Home with No Needs Medically Cleared to Leave:06/21/2017 Discharge Date:06/21/2017 CM D/C Disposition:Home, Routine, Self-Care ADT D/C Disposition:Home, Routine, Self-Care Projected Discharge Date:06/21/2017 Transportation at D/C:Family Discharge Delay Reason: Follow-Up Date:06/21/2017 Discharge Slot: Final Diagnosis: Placement Information Patient Contact Information Contact Name:BESSY Relationship:Phoebe Address:[address] Home Phone: City:[place] Alternate Phone: State/Zip Code:[place] [address] Email: Financial Information Financial Class: Primary Plan Desc:MEDICARE INPATIENT Primary Plan Number:[id number] Secondary Plan Desc:[employer] Secondary Plan Number:[id number] Assessment Information LACE LACE Acuity / Level of Care Answers: Was the patient admitted to hospital via the emergency department? Yes: Emergency dept visits in Answers: 2 last 6 months Score: 5 Date Signed: 06/18/2017 03:51 PM Electronically Signed By:Nisreen Vasquez RN [facility] CM Progress Note CM Note CM Note Notes: Reviewed chart and discussed with RN. Thompson pt will dc home w/ w/no case management needs. CM w/f for changes/needs. Date Signed: 06/19/2017 02:07 PM Electronically Signed By:Jeanette Rodgers RN Intervention Information Intervention Type:*VILA-Signed Date of Service:06/19/2017 11:23 AM Patient Type:Observation Staff Member:Katherin Lewis Hours: Discipline: Severity: Comment:
--- NOTE | 2017-06-21 10:42 | ASDISCHSUM ---
Discharge Information Plan Status:Home with No Needs Medically Cleared to Leave:06/21/2017 Discharge Date:06/21/2017 CM D/C Disposition:Home, Routine, Self-Care ADT D/C Disposition:Home, Routine, Self-Care Projected Discharge Date:06/21/2017 Transportation at D/C:Family Discharge Delay Reason: Follow-Up Date:06/21/2017 Discharge Slot: Final Diagnosis: Placement Information Patient Contact Information Contact Name:BESSY Relationship:Phoebe Address:[address] Home Phone: City:[place] Alternate Phone: State/Zip Code:[place] [address] Email: Financial Information Financial Class: Primary Plan Desc:MEDICARE INPATIENT Primary Plan Number:[id number] Secondary Plan Desc:[employer] Secondary Plan Number:[id number] Assessment Information LACE LACE Acuity / Level of Care Answers: Was the patient admitted to hospital via the emergency department? Yes: Emergency dept visits in Answers: 2 last 6 months Score: 5 Date Signed: 06/18/2017 03:51 PM Electronically Signed By:Nisreen Vasquez RN [facility] CM Progress Note CM Note CM Note Notes: Reviewed chart and discussed with RN. Thompson pt will dc home w/ w/no case management needs. CM w/f for changes/needs. Date Signed: 06/19/2017 02:07 PM Electronically Signed By:Jeanette Rodgers RN Intervention Information Intervention Type:*VILA-Signed Date of Service:06/19/2017 11:23 AM Patient Type:Observation Staff Member:Katherin Lewis Hours: Discipline: Severity: Comment:
--- NOTE | 2017-06-21 10:42 | ASDISCHSUM ---
Discharge Information Plan Status:Home with No Needs Medically Cleared to Leave:06/21/2017 Discharge Date:06/21/2017 CM D/C Disposition:Home, Routine, Self-Care ADT D/C Disposition:Home, Routine, Self-Care Projected Discharge Date:06/21/2017 Transportation at D/C:Family Discharge Delay Reason: Follow-Up Date:06/21/2017 Discharge Slot: Final Diagnosis: Placement Information Patient Contact Information Contact Name:BESSY Relationship:Phoebe Address:[address] Home Phone: City:[place] Alternate Phone: State/Zip Code:[place] [address] Email: Financial Information Financial Class: Primary Plan Desc:MEDICARE INPATIENT Primary Plan Number:[id number] Secondary Plan Desc:[employer] Secondary Plan Number:[id number] Assessment Information LACE LACE Acuity / Level of Care Answers: Was the patient admitted to hospital via the emergency department? Yes: Emergency dept visits in Answers: 2 last 6 months Score: 5 Date Signed: 06/18/2017 03:51 PM Electronically Signed By:Nisreen Vasquez RN [facility] CM Progress Note CM Note CM Note Notes: Reviewed chart and discussed with RN. Thompson pt will dc home w/ w/no case management needs. CM w/f for changes/needs. Date Signed: 06/19/2017 02:07 PM Electronically Signed By:Jeanette Rodgers RN Intervention Information Intervention Type:*VILA-Signed Date of Service:06/19/2017 11:23 AM Patient Type:Observation Staff Member:Katherin Lewis Hours: Discipline: Severity: Comment:
--- NOTE | 2017-06-21 16:41 | GDS ---
[f rep st] DISCHARGE SUMMARY DISCHARGE DIAGNOSES: 1. Fecal impaction. 2. Hypothyroidism. 3. Chronic pain with continuous narcotic dependency. 4. Urinary retention and dilated ureters due to stool impaction. 5. Severe protein calorie malnutrition with a BMI of 16. HISTORY: The patient is a 57-year-old female, who has recently struggled to regulate her thyroid, wh ich has resulted in significant constipation, and eventually a severe fecal impaction. She failed be dside disimpaction, and failed Relistor, and did have to go to Endoscopy to have a fecal disimpaction under anesthesia. After she was fecally disimpacted, she was given multiple liters of GoLYTELY by [facility], and did have complete cleaning out of her system. Gastroenterology is recommending reduction of narcotics as able. She will also maintain on a daily MiraLAX schedule. The patient als o is adamant that it was the thyroid dysregulation that led to this situation, and her TSH at this po int is normal. So, hopefully that will also assist in maintaining good GI function. She was noted to have urinary retention and dilated ureters due to excessive pressure from this large amount of stool. After she had her disimpaction, we repeated a renal ultrasound that did not show a ny further obstruction of her urinary system. DISCHARGE MEDICATIONS: Please see computerized record for full detailed list. New medication MiraLA X 17 g 1-2 times daily to maintain a daily bowel movement. ADDITIONAL DISCHARGE INSTRUCTIONS: 1. Reduce narcotics as able given their nature to worsen constipation. 2. Regular unrestricted diet. She had consultation with Dietary, and it was recommended she discont inue the overly restrictive diet recommended by her personal security specialist, since she is malnourished. Greater than 30 minutes of time was spent arranging this discharge. The patient was seen and examine d by me on the day of discharge. /[id number]/MODL
[2017-06-21] MEDS ORDERED: ESTRADIOL PO SCH (21:00)
[2017-06-21] MEDS ORDERED: NORETHINDRONE ACET PO SCH (21:00)
--- NOTE | 2017-06-23 13:03 | GIREPORT ---
[facility] - Endoscopy Department Patient Name: Sissy Suarez Procedure Date: 06/19/2017 5:28 PM Patient Type: Inpatient Attending MD/ ER Physician: Rafael Hughes Procedure: Flexible Sigmoidoscopy Indications: Abnormal CT of the GI tract, Obstipation Providers: Ahmet Mas MD Medicines: General Anesthesia Complications: No immediate complications. Estimated blood loss: Minimal. Description of Procedure: After obtaining informed consent, the endoscope was passed under direct vision. Throughout the procedure, the patient's blood pressure, pulse, and oxygen saturations were monitored continuously.The colonoscopy was perf ormed without difficulty. The patient tolerated the procedure well. The quali ty of the bowel preparation was poor. After obtaining informed consent, the endoscope was passed under direct vision. Throughout the procedure, the patient's blood pressure, pulse, and oxygen saturations were monitored continuously. The Colonoscope with irrigation channel was introduced th rough the anus and advanced to the left transverse colon. Findings: The digital rectal exam findings include stool ball in rectum. Extensive amounts of stool was found in the rectum, precluding visualization. manual disimpaction performed A large amount of solid stool was found in the sigmoid colon, in the descending colon, at the splenic flexure and in the distal transverse c oldev, precluding visualization. Lavage of the area was performed using copiou s amounts of sterile water, resulting in incomplete clearance with contin ued poor visualization. The exam was otherwise without abnormality. Estimated Blood Loss: Estimated blood loss was minimal. Post Op Diagnosis: - Preparation of the colon was poor. - Stool ball in rectum found on digital rectal exam. - Stool in the rectum. - Stool in the sigmoid colon, in the descending colon, at the splenic flexure and in the distal transverse colon. - The examination was otherwise normal. - No specimens collected. Recommendation: - Recommend laxative today. Magnesium citrate this evening - Recommend laxative. [place]oon of Golytely tomorrow morning - Return patient to hospital [facility] for ongoing care. - Return to primary care physician as previously scheduled. - Thank you for allowing me to help in your patient's care. Do not hesi koenig to call with any questions. Attending Participation: I personally performed the entire procedure. gT Leo M.D Ahmet Mas MD 06/23/2017 1:03:04 PM This report has been signed electronicallyMathew MD Tg Number of Addenda: 0 Note Initiated On: 06/19/2017 5:28 PM [email or web address]
--- NOTE | 2017-06-23 13:03 | GIREPORT ---
[facility] Surgical Services - Endoscopy Department Patient Name: Sissy Suarez Procedure Date: 06/19/2017 5:28 PM Patient Type: Inpatient Attending MD/ ER Physician: Rafael Hughes Procedure: Flexible Sigmoidoscopy Indications: Abnormal CT of the GI tract, Obstipation Providers: Ahmet Mas MD Medicines: General Anesthesia Complications: No immediate complications. Estimated blood loss: Minimal. Description of Procedure: After obtaining informed consent, the endoscope was passed under direct vision. Throughout the procedure, the patient's blood pressure, pulse, and oxygen saturations were monitored continuously.The colonoscopy was perf ormed without difficulty. The patient tolerated the procedure well. The quali ty of the bowel preparation was poor. After obtaining informed consent, the endoscope was passed under direct vision. Throughout the procedure, the patient's blood pressure, pulse, and oxygen saturations were monitored continuously. The Colonoscope with irrigation channel was introduced th rough the anus and advanced to the left transverse colon. Findings: The digital rectal exam findings include stool ball in rectum. Extensive amounts of stool was found in the rectum, precluding visualization. manual disimpaction performed A large amount of solid stool was found in the sigmoid colon, in the descending colon, at the splenic flexure and in the distal transverse c oldev, precluding visualization. Lavage of the area was performed using copiou s amounts of sterile water, resulting in incomplete clearance with contin ued poor visualization. The exam was otherwise without abnormality. Estimated Blood Loss: Estimated blood loss was minimal. Post Op Diagnosis: - Preparation of the colon was poor. - Stool ball in rectum found on digital rectal exam. - Stool in the rectum. - Stool in the sigmoid colon, in the descending colon, at the splenic flexure and in the distal transverse colon. - The examination was otherwise normal. - No specimens collected. Recommendation: - Recommend laxative today. Magnesium citrate this evening - Recommend laxative. [place] tomorrow morning - Return patient to [facility] for [facility] care. - Return to primary care physician as previously scheduled. - Thank you for allowing me to help in your patient's care. Do not hesi koenig to call with any questions. Attending Participation: I personally performed the entire procedure. Tg Leo M.D Ahmet Mas MD 06/23/2017 1:03:04 PM This report has been signed electronicallyMathew MD Tg Number of Addenda: 0 Note Initiated On: 06/19/2017 5:28 PM [email or web address]
== END 2017-06-21 11:25 | disposition home or self-care (01) | DRG 388 ==
LOC: EDUNIT# → F3E 15:08 → OBSVTOIN 06-19 11:08
PROVIDERS: ADMIT Student in an Organized Health Care Education/Training Program; ATTEND Student in an Organized Health Care Education/Training Program
PROC: 0DCP8ZZ Extirpation of Matter from Rectum, Via Natural or Artificial Opening Endoscopic (ICD-10-PCS; principal; 2017-06-19 16:45)
PROC: 3E1H88Z Irrigation of Lower GI using Irrigating Substance, Via Natural or Artificial Opening Endoscopic (ICD-10-PCS; principal; 2017-06-19 16:45)
CPT/HCPCS: 84480-90; 97165-GO; G0378; G8987-GO-CI; G8988-GO-CI; G8989-GO-CI; J1170; J2212; J2250; J2704; J3010; Q9967